=== PATIENT | male | born 1950 | race African-American/Black ===

== ENCOUNTER 2019-04-19 10:30 | Emergency (ER) | payer MEDICARE, OTHER ==
[2019-04-19] MEDS ORDERED: ACETAMINOPHEN 500 MG TAB ONE (12:14)
--- NOTE | 2019-04-19 12:17 | RAD REPORT ---
EXAM DESCRIPTION: Joaquín Alexander (2 Views)04/19/2019 12:01 pm CLINICAL HISTORY: Chest pain COMPARISON: None FINDINGS: The lungs appear clear of acute infiltrate. The heart is normal size IMPRESSION: No acute abnormalities displayed
--- NOTE | 2019-04-19 12:19 | RAD REPORT ---
EXAM DESCRIPTION: RAD - Foot Left 3 View - 04/19/2019 12:02 pm CLINICAL HISTORY: Left Foot pain status post fall FINDINGS: No acute fracture or dislocation Old fracture fifth metatarsal
--- NOTE | 2019-04-19 12:47 | ER ---
Nurse's Notes [facility] Name: Shankar Arora Jr Age: 69 yrs Sex: Male : 1950 Arrival Date: 04/19/2019 Time: 10:32 Bed 27 Private MD: Diagnosis: Pain in left foot;Fall on same level from slipping, tripping and stumbling Presentation: 04/19 10:53 Presenting complaint: Patient states: "I fell yesterday and sprain my big toe, but my ss back has been hurting me for a couple weeks and I just want to get that checked out too." C/o pain to L first toe x 1 day and L low back that radiates down L leg x 2 weeks. Transition of care: patient was not received from another setting of care. Onset of symptoms is unknown. Risk Assessment: Do you want to hurt yourself or someone else? Patient reports no desire to harm self or others. Initial Sepsis Screen: Does the patient meet any 2 criteria? No. Patient's initial sepsis screen is negative. Does the patient have a suspected source of infection? No. Patient's initial sepsis screen is negative. Care prior to arrival: None. 10:53 Method Of Arrival: Ambulatory ss 10:53 Acuity: ALBERT 4 ss Historical: - Allergies: 10:56 No Known Allergies; ss - PMHx: 10:56 Diabetes - IDDM; ss - PSHx: 10:56 None; ss - Immunization history:: Adult Immunizations up to date. - Social history:: Smoking status: Patient/guardian denies using tobacco. - Ebola Screening: : Patient denies exposure to infectious person Patient denies travel to an Ebola-affected area in the 21 days before illness onset. Screenin:06 Abuse screen: Denies threats or abuse. Denies injuries from another. Nutritional ca1 screening: No deficits noted. Tuberculosis screening: No symptoms or risk factors identified. Fall Risk Fall in past 12 months (25 points). Assessment: 11:06 General: Appears in no apparent distress. comfortable, Behavior is calm, cooperative, ca1 appropriate for age. Pain: Complains of pain in L rib cage, L back, and L big toe. Pain: Pain currently is 10 out of 10 on a pain scale. Neuro: Level of Consciousness is awake, alert, obeys commands, Oriented to person, place, time, situation. Cardiovascular: Heart tones S1 S2 present Capillary refill < 3 seconds Patient's skin is warm and dry. Respiratory: Airway is patent Respiratory effort is even, unlabored, Respiratory pattern is regular, symmetrical, Breath sounds are clear bilaterally. GI: Abdomen is flat, non-distended, Bowel sounds present X 4 quads. Abd is soft and non tender X 4 quads. : No deficits noted. No signs and/or symptoms were reported regarding the genitourinary system. EENT: No deficits noted. No signs and/or symptoms were reported regarding the EENT system. Derm: Skin is intact, is healthy with good turgor, Skin is pink, warm \\T\\ dry. Musculoskeletal: Circulation, motion, and sensation intact. Capillary refill < 3 seconds, Range of motion: intact in all extremities. 12:13 Reassessment: Patient appears in no apparent distress at this time. Patient is alert, ca1 oriented x 3, equal unlabored respirations, skin warm/dry/pink. Pending Xray results. 12:46 Reassessment: Patient appears in no apparent distress at this time. Patient is alert, ca1 oriented x 3, equal unlabored respirations, skin warm/dry/pink. Vital Signs: 10:56 BP 146 / 79; Pulse 82; Resp 16; Temp 97.1(TE); Pulse Ox 100% on R/A; Weight 89.36 kg; ss Height 6 ft. 2 in. (187.96 cm); Pain 10/10; 12:13 BP 139 / 66; Pulse 77; Resp 17 S; Pulse Ox 100% on R/A; ca1 12:46 BP 146 / 83; Pulse 73; Resp 17 S; Pulse Ox 100% on R/A; ca1 10:56 Body Mass Index 25.29 (89.36 kg, 187.96 cm) ED Course: 10:32 Patient arrived in ED. rg4 10:55 Triage completed. ss 10:56 Arm band placed on right wrist. ss 10:58 Jose Rafael Baxter FNP-C [facility]. la1 10:58 Tony Bustillo MD is Attending Physician. la1 10:58 Jemma Vivar, PITA is Primary Nurse. ca1 11:06 Patient has correct armband on for positive identification. Bed in low position. Call ca1 light in reach. Side rails up X 1. Pulse ox on. NIBP on. Warm blanket given. 11:06 No provider procedures requiring assistance completed. ca1 12:02 Foot Left 3 View XRAY In Process Unspecified. EDMS 12:03 Chest Pa And Lat (2 Views) XRAY In Process Unspecified. EDMS 12:42 Diet: Patient given snack. jp3 12:54 Patient did not have IV access during this emergency room visit. ca1 Administered Medications: 12:13 Drug: Tylenol 1000 mg Route: PO; ca1 12:47 Follow up: Response: No adverse reaction; Pain is decreased ca1 Outcome: 12:46 Discharge ordered by . la1 12:54 Discharged to home ambulatory. ca1 12:54 Condition: stable 12:54 Discharge instructions given to patient, Instructed on discharge instructions, follow up and referral plans. Demonstrated understanding of instructions, follow-up care. 12:54 Patient left the ED. ca1 Signatures: Dispatcher [employer] Randa Barreto, PITA LEMA ss Jose Rafael Baxter, PRESS CUTTER-C PRESS CUTTER-Candis1 Samira Ley Jacob jp3 Jemma Vivar RN RN ca1
--- NOTE | 2019-04-19 12:47 | EDPHYS ---
Physician Documentation [facility] Name: Shankar Arora Jr Age: 69 yrs Sex: Male : 1950 Arrival Date: 04/19/2019 Time: 10:32 Bed 27 Private MD: ED Physician Tony Bustillo HPI: 04/19 11:09 This 69 yrs old Black Male presents to ER via Ambulatory with complaints of Back Pain, la1 Foot Pain. 11:09 The patient presents with pain that is acute. The symptoms are located in the left la1 subscapular area and mid back area. Onset: The symptoms/episode began/occurred yesterday. The pain does not radiate. The problem was sustained during a fall, while standing. Severity of symptoms: At their worst the symptoms were mild. The patient has not experienced similar symptoms in the past. pt states he slipped and fell in the rain and is having pain in the left foot and mid back region. . Historical: - Allergies: 10:56 No Known Allergies; ss - PMHx: 10:56 Diabetes - IDDM; ss - PSHx: 10:56 None; ss - Immunization history:: Adult Immunizations up to date. - Social history:: Smoking status: Patient/guardian denies using tobacco. - Ebola Screening: : Patient denies exposure to infectious person Patient denies travel to an Ebola-affected area in the 21 days before illness onset. ROS: 11:12 Constitutional: Negative for fever, chills, and weight loss, Eyes: Negative for injury, la1 pain, redness, and discharge, ENT: Negative for injury, pain, and discharge, Neck: Negative for injury, pain, and swelling, Cardiovascular: Negative for chest pain, palpitations, and edema, Respiratory: Negative for shortness of breath, cough, wheezing, and pleuritic chest pain, Abdomen/GI: Negative for abdominal pain, nausea, vomiting, diarrhea, and constipation. 11:12 Back: Positive for pain with movement, of the mid back area and left mid back. 11:12 MS/extremity: Positive for pain, of the left foot. Exam: 11:13 Constitutional: This is a well developed, well nourished patient who is awake, alert, la1 and in no acute distress. Head/Face: Normocephalic, atraumatic. Eyes: Pupils equal round and reactive to light, extra-ocular motions intact. Periorbital areas with no swelling, redness, or edema. ENT: . Mucous membranes moist. Neck: No Meningismus. Chest/axilla: Normal chest wall appearance and motion. Nontender with no deformity. No lesions are appreciated. Cardiovascular: Regular rate and rhythm with a normal S1 and S2. No gallops, murmurs, or rubs. Normal PMI, no JVD. No pulse deficits. Respiratory: Lungs have equal breath sounds bilaterally, clear to auscultation No rales, rhonchi or wheezes noted. No increased work of breathing, no retractions or nasal flaring. Back: No spinal tenderness. No costovertebral tenderness. Full range of motion. MS/ Extremity: Pulses equal, no cyanosis. Neurovascular intact. Full, normal range of motion. Neuro: Awake and alert, GCS 15, oriented to person, place, time, and situation. . Normal gait. Vital Signs: 10:56 BP 146 / 79; Pulse 82; Resp 16; Temp 97.1(TE); Pulse Ox 100% on R/A; Weight 89.36 kg; ss Height 6 ft. 2 in. (187.96 cm); Pain 10/10; 12:13 BP 139 / 66; Pulse 77; Resp 17 S; Pulse Ox 100% on R/A; ca1 12:46 BP 146 / 83; Pulse 73; Resp 17 S; Pulse Ox 100% on R/A; ca1 10:56 Body Mass Index 25.29 (89.36 kg, 187.96 cm) ss MDM: 10:58 Patient medically screened. la1 12:43 Data reviewed: vital signs, nurses notes, radiologic studies, and as a result, I will la1 discharge patient. Data interpreted: Pulse oximetry: on room air is 100 %. Interpretation: normal. Test interpretation: by ED physician or midlevel provider: plain radiologic studies. Counseling: I had a detailed discussion with the patient and/or guardian regarding: the historical points, exam findings, and any diagnostic results supporting the discharge/admit diagnosis, radiology results, the need for outpatient follow up, a family practitioner, to return to the emergency department if symptoms worsen or persist or if there are any questions or concerns that arise at home. Special discussion: Based on the patient's history, exam, and Dx evaluation, there is no indication for emergent intervention or inpatient Tx. It is understood by the patient/guardian that if the Sx's persist or worsen they need to return immediately for re-evaluation. 04/19 11:04 Order name: Foot Left 3 View XRAY; Complete Time: 12:31 la1 04/19 11:04 Order name: Chest Pa And Lat (2 Views) XRAY; Complete Time: 12:31 la1 Administered Medications: 12:13 Drug: Tylenol 1000 mg Route: PO; ca1 12:47 Follow up: Response: No adverse reaction; Pain is decreased ca1 Disposition: 13:28 Co-signature as Attending Physician, Tony Bustillo MD I agree with the assessment and kdr plan of care. Disposition: 04/19/19 12:46 Discharged to Home. Impression: Pain in left foot, Fall on same level from slipping, tripping and stumbling. - Condition is Stable. - Discharge Instructions: Musculoskeletal Pain, Heat Therapy, Foot Pain. - Medication Reconciliation Form, Thank You Letter form. - Follow up: Private Physician; When: 2 - 3 days; Reason: Recheck today's complaints, Re-evaluation by your physician. Follow up: Emergency Department; When: As needed. - Problem is new. - Symptoms are unchanged. - Notes: You may take tylenol over the counter for your pain, I reccomend two regular strength or two extra strength tylenol as needed every 8 hours. Signatures: Dispatcher [employer] EDMT Tony Bustillo MD MD [facility] Randa Stroud RN RN ss Jose Rafael Baxter, ASSISTANT PROFESSOR OF PHYSICS-C ASSISTANT PROFESSOR OF PHYSICS-Cla1 Jemma Vivar RN RN ca1 Corrections: (The following items were deleted from the chart) 12:54 12:46 04/19/2019 12:46 Discharged to Home. Impression: Pain in left foot; Fall on same ca1 level from slipping, tripping and stumbling. Condition is Stable. Forms are Medication Reconciliation Form, Thank You Letter, Antibiotic Education, Prescription Opioid Use. Follow up: Private Physician; When: 2 - 3 days; Reason: Recheck today's complaints, Re-evaluation by your physician. Follow up: Emergency Department; When: As needed. Problem is new. Symptoms are unchanged. la1
[2019-04-19 13:01] VITALS: TEMP 97.1; O2SAT 100
[2019-04-19 13:03] VITALS: BP 146/83
== END 2019-04-19 12:54 | disposition home or self-care (01) ==
LOC: ER 10:30
DX: M79.672 Pain in left foot (principal); W01.0XXA Fall on same level from slipping, tripping and stumbling without subsequent striking against object, initial encounter; Y93.01 Activity, walking, marching and hiking; Y92.89 Other specified places as the place of occurrence of the external cause
CPT/HCPCS: 71046; 99283